=== PATIENT | male | born 1995 ===

== ENCOUNTER 2017-01-30 03:27 | Emergency (ER) | payer SELFPAY ==
[2017-01-30] MEDS ORDERED: AMOXICILLIN TRIHYDRATE 250 MG CAPSULE ONE (03:56)
== END 2017-01-30 04:34 | disposition home or self-care (01) ==
LOC: ED 03:27
DX: H65.93 Unspecified nonsuppurative otitis media, bilateral (principal)
CPT/HCPCS: 99282 ×2; A9270